=== PATIENT | male | born 1960 | race Caucasian/White ===

== ENCOUNTER 2016-07-09 07:22 | Emergency (ER) | payer MEDICAID ==
[2016-07-09 07:27] VITALS: BP 143/93; PULSE 93; RESP 20; TEMP 97.4
[2016-07-09] MEDS ORDERED: AMOXIC-POT CLAV 875-125MG 1 EACH TAB PO STA (07:45)
[2016-07-09] MEDS ORDERED: ACETAMINOPHEN TAB 500 MG TAB PO STA (07:45)
[2016-07-09] MEDS ORDERED: DIPH,PERTUS(ACELL)TETVAC-LF 0.5 ML VIAL IM ONE (07:45)
--- NOTE | 2016-07-09 07:55 | ED ---
Animal Bite HPI - General Chief Complaint: Animal Bite Stated Complaint: Cat Bite Time Seen by Provider: 07/09/16 07:34 Source: patient Mode of arrival: ambulatory Limitations: no limitations - History of Present Illness Initial Comments: Patient is a 55 years old male got bit by his own cat on Friday evening and this is about 35 hours ago, he is In a in-house Since Was 6 weeks old intact is now almost 20 years old about the vaccination status Is not vaccinated though he has been to the fact and patient himself is not sure about his tetanus shot and now he presents with a swelling of the right hand where They've him is quite swollen is red is painful but he denies any fever or chills or denies any streaks going up from the Bite to proximal upper extremity - Related Data Previous Rx's Medication Instructions Recorded Amoxic-Pot Clav 875-125Mg 1 tab PO Q12HR #20 tablet 07/09/16 [Augmentin 875-125] Allergies Allergy/AdvReac Type Severity Reaction Status Date / Time codeine AdvReac Nausea Verified 07/09/16 08:29 Review of Systems ROS Statement: Those systems with pertinent positive or pertinent negative responses have been documented in the HPI. ROS Other: All systems not noted in ROS Statement are negative. Past Medical History Past Medical History: No Reported History History of Any Multi-Drug Resistant Organisms: None Reported Past Surgical History: Hernia Repair Additional Past Surgical History / Comment(s): colonoscopies Past Anesthesia/Blood Transfusion Reactions: No Reported Reaction Past Psychological History: No Psychological Hx Reported Smoking Status: Never smoker Past Alcohol Use History: Occasional Past Drug Use History: None Reported - Past Family History Father Family Medical History: Cancer Mother Family Medical History: Cancer General Exam - General Exam Comments Initial Comments: General: The patient is awake and alert, in mild distress Skin: Skin the right hand is read, swollen, erythematous and now quite tender to palpate Eye: Pupils are equal, round and reactive to light, extra-ocular movements are intact; there is normal conjunctiva bilaterally. Ears, nose, mouth and throat: There are moist mucous membranes and no oral lesions. Neck: The neck is supple, there is no tenderness or JVD. Cardiovascular: There is a regular rate and rhythm. No murmur, rub or gallop is appreciated. Respiratory: To auscultation bilateral, no wheezing no rhonchi no distress respiratory ram noticed Gastrointestinal: Soft, non-distended, non-tender abdomen without masses or organomegaly noted. There is no rebound or guarding present. Bowel sounds are unremarkable. Back: There is no tenderness to palpation in the midline. There is no obvious deformity. Musculoskeletal: Normal ROM, no tenderness, There is no pedal edema. There is no calf tenderness or swelling. No cords were appreciated. Neurological: CN II-XII intact, Cranial nerves III through XII are intact. There are no obvious motor or sensory deficits. Coordination appears grossly intact. Speech is normal. Psychiatric: Cooperative, appropriate mood & affect, normal judgment. Limitations: no limitations Course Vital Signs 07/09/16 07:23 Temperature 97.4 F L Pulse Rate 93 Respiratory 20 Rate Blood Pressure 143/93 O2 Sat by Pulse 97 Oximetry Dyspneic with the pain shortness of sedation with her look into his CAT bite since he is not vaccinated and now we can get some directions from the health department with a he needs a rabies vaccine or not and will go to go ahead and give him a.m. tetanus booster Animal control and doesn't open until 11 we had a mouthful of the forearm and begin a fax that animal control and I will discharge him with the Augmentin for the next 7 days and animal control will follow-up from the vaccine [place] standpoint and he'll follow up with his family doctor or return to the ER if infection gets worse with the IV antibiotics Disposition Clinical Impression: Cat bite Disposition: HOME SELF-CARE Condition: Good Instructions: Animal Bite (ED) Prescriptions: Amoxic-Pot Clav 875-125Mg [Augmentin 875-125] 1 tab PO Q12HR #20 tablet Referrals: Yair Alex MD [Primary Care Provider] - 1-2 days
== END 2016-07-09 08:51 | disposition home or self-care (01) ==
LOC: EC 07:22
DX: S61.451A Open bite of right hand, initial encounter (principal); Z88.5 Allergy status to narcotic agent; Z23 Encounter for immunization; W55.01XA Bitten by cat, initial encounter; Y92.009 Unspecified place in unspecified non-institutional (private) residence as the place of occurrence of the external cause
CPT/HCPCS: 90471; 90715; 99283

== ENCOUNTER 2017-02-19 07:18 | Day surgery (SDC) | payer MEDICAID ==
[2017-02-17 11:36] VITALS: BMI 28.5
[~2017-02-19 07:18] MED LIST: LACTATED RINGERS 1,000 ML IV SCH
[2017-02-19 07:50] VITALS: TEMP 98.6
[2017-02-19] MEDS ORDERED: LIDOCAINE 1% 20 ML VIAL (10MG/ML) FOR IV START INTRADERMA ONE (07:57)
[2017-02-19] MEDS ORDERED: PROPOFOL 10 MG/ML 20 ML VIAL IV ONE (08:08)
--- NOTE | 2017-02-19 08:42 | P.PCN ---
Date of Procedure: 02/19/17 Procedure(s) Performed: BRIEF HISTORY: Patient is a 56-year-old pleasant white male, scheduled for an elective colonoscopy as a part of evaluation of prior history of colon polyps. Last colonoscopy was 5 years ago. PROCEDURE PERFORMED: Colonoscopy with snare polypectomy. PREOPERATIVE DIAGNOSIS: History of colon polyps. IV sedation per Anesthesia. PROCEDURE: After informed consent was obtained, the patient, was brought into the endoscopy unit. IV sedation was administered by Anesthesia under continuous monitoring. Digital rectal examination was normal. Initially the Olympus CF- 160 flexible video colonoscope was then inserted in the rectum, gradually advanced into the transverse colon and further advancement was not possible. Scope was removed and a. Colonoscopy was then introduced into the rectum and gradually advanced into the cecum mild to moderate difficulty. Careful examination was performed as the scope was gradually being withdrawn. Ileocecal valve and the appendiceal orifice were visualized and appeared normal. Prep was excellent. Mucosa of the cecum, ascending colon, appeared normal. In the mid transverse colon about 70 cm from the anal was there was a 7-8 mm polyp that was removed by snare polypectomy. Rest of the transverse colon, descending colon, sigmoid colon, and rectum appeared normal. Retroflexion was performed in the rectum and small internal hemorrhoids were seen. The patient tolerated the procedure well. IMPRESSION: 7-8 mm midtransverse colon polyp status post polypectomy. Small internal hemorrhoids. RECOMMENDATIONS: Findings of this examination were discussed with the patient as well as his family. He was advised to follow with the biopsy results. If the biopsy shows a tubular adenoma, he can have a repeat colonoscopy in 5 years.
[2017-02-19 08:47] VITALS: RESP 16
[2017-02-19 09:01] VITALS: BP 127/89; PULSE 72
== END 2017-02-19 09:12 | disposition home or self-care (01) ==
LOC: ORWHC2ENDO 07:18
PROVIDERS: ATTEND Internal Medicine Gastroenterology
DX: Z12.11 Encounter for screening for malignant neoplasm of colon (principal); D12.3 Benign neoplasm of transverse colon; K64.8 Other hemorrhoids; Z86.010 Personal history of colon polyps; Z86.73 Personal history of transient ischemic attack (TIA), and cerebral infarction without residual deficits
CPT/HCPCS: 88305; 45385; J2704

== ENCOUNTER 2019-10-15 08:00 | Day surgery (SDC) | payer MEDICAID ==
[2019-10-13 15:34] VITALS: BMI 28.1
[~2019-10-15 08:00] MED LIST changes: +ACETAMINOPHEN TAB 500 MG TAB PO ONE; +DEXAMETHASONE SOD PHOSPHATE 10 MG/ML 1 ML VIAL IV ONE; +HEPARIN SODIUM,PORCINE 5,000 UNIT/ML 1 ML VIAL SQ ONE; +LIDOCAINE 1% (10MG/ML) FOR IV START INTRADERMA PRN; +MIDAZOLAM 2 MG/2 ML VIAL IV PRN; +ONDANSETRON 4 MG/2 ML VIAL IVP ONE; +fentaNYL (PF) 50 MCG/ML 2 ML AMP IVP PRN
--- NOTE | 2019-10-15 08:01 | P.GSHP ---
History of Present Illness H&P Date: 10/15/19 Chief Complaint: Right inguinal hernia 58-year-old male known to service. Patient with history of previous umbilical and ventral hernia repaired with mesh in the past. Recently noticed swelling right groin. Mild pain at times. Here today for elective repair right inguinal hernia laparoscopically with the da Kirsty robot. Past Medical History Past Medical History: No Reported History Additional Past Medical History / Comment(s): FAMILY HX OF COLON CANCER History of Any Multi-Drug Resistant Organisms: None Reported Past Surgical History: Hernia Repair Additional Past Surgical History / Comment(s): colonoscopies Past Anesthesia/Blood Transfusion Reactions: No Reported Reaction Smoking Status: Never smoker - Past Family History Father Family Medical History: Cancer Additional Family Medical History / Comment(s): COLON CANCER Mother Family Medical History: Cancer Additional Family Medical History / Comment(s): Colon cancer Medications and Allergies Home Medications Medication Instructions Recorded Confirmed Type No Known Home Medications 02/17/17 10/13/19 History Allergies Allergy/AdvReac Type Severity Reaction Status Date / Time codeine AdvReac Nausea Verified 10/13/19 15:30 Surgical - Exam Physical exam: General: Well-developed, well-nourished HEENT: Normocephalic, sclerae nonicteric Abdomen: Nontender, nondistended, previous scars noted, moderate size right inguinal hernia, no palpable hernia on left Extremities: No edema Neuro: Alert and oriented Assessment and Plan (1) Right inguinal hernia Narrative/Plan: Will proceed with the da Kirsty assisted laparoscopic repair right inguinal hernia with mesh, possible open, possible bilateral at this time. Risks of bleeding, infection, recurrence, bladder and bowel injury, numbness, nerve injury, conversion to an open procedure were discussed with the patient. The patient understands and wishes to proceed. Status: Acute Code(s): K40.90 - UNIL INGUINAL HERNIA, W/O OBST OR GANGR, NOT SPCF RECUR SNOMED Code(s): 671547731
[2019-10-15] MEDS ORDERED: ALPRAZolam 0.5 MG TAB PO ONE (09:04)
[2019-10-15] MEDS ORDERED: ALPRAZolam 0.5 MG TAB ONE (09:04)
[2019-10-15] MEDS ORDERED: BUPIVACAINE (PF) 0.25% 30 ML VIAL SQ ONE ×3 (09:32→10:04)
[2019-10-15] MEDS ORDERED: ONDANSETRON 4 MG/2 ML VIAL ONE (09:34)
[2019-10-15] MEDS ORDERED: fentaNYL (PF) 50 MCG/ML 2 ML AMP ONE (09:34)
[2019-10-15] MEDS ORDERED: ROCURONIUM BROMIDE 10 MG/ML 5 ML VIAL IV ONE (09:34)
[2019-10-15] MEDS ORDERED: SUCCINYLCHOLINE CHLORIDE VIAL 200 MG/10 ML VIAL IV ONE (09:34)
[2019-10-15] MEDS ORDERED: PROPOFOL 10 MG/ML 20 ML VIAL IV ONE (09:34)
[2019-10-15] MEDS ORDERED: MIDAZOLAM 2 MG/2 ML VIAL ONE (09:34)
[2019-10-15] MEDS ORDERED: NEOSTIGMINE 1 MG/ML 10 ML VIAL ONE (09:34)
[2019-10-15] MEDS ORDERED: GLYCOPYRROLATE 0.2 MG/ML 2 ML VIAL ONE (09:34)
[2019-10-15] MEDS ORDERED: LIDOCAINE 1% INJ 10MG/ML (20 ML MDV) ONE (09:34)
[2019-10-15] MEDS ORDERED: KETOROLAC 15 MG/ML 1 ML VIAL ONE (09:34)
[2019-10-15] MEDS ORDERED: TAMSULOSIN 0.4 MG CAP.ER.24H PO STA (12:10)
--- NOTE | 2019-10-15 12:10 | P.OP ---
Date of Procedure: 10/15/19 Procedure(s) Performed: PREOPERATIVE DIAGNOSIS: Large right inguinal hernia POSTOPERATIVE DIAGNOSIS: Same PROCEDURE: Laparoscopic repair right inguinal hernia with the da Kirsty robot assistance with mesh SURGEON: Teresa EBL: Minimal ANESTHESIA: General COMPLICATIONS: None OPERATIVE PROCEDURE: Patient was placed in the operating table in the supine position. The patient was placed under general anesthesia. The abdomen was prepped and draped in usual sterile fashion. Because of the patient's previous midline hernia repair a 5 mm optical trocar was used under the abdominal cavity in the left midabdomen. There were no adhesions beneath the peritoneum at the umbilicus from previous repair. Following that a 8 mm trocar was placed through a vertical incision at the apex of his previous ventral hernia scar. 2 additional 8 mm trochars were placed in the right upper quadrant and left upper quadrant under visualization. The robotic arms were then brought in and docked into place. The fenestrated bipolar was used in the left arm and the laparoscopic akua was utilized in the right arm. A 30 8 mm scope was used in the up position. The peritoneal cavity was inspected. The patient had a large indirect hernia on the right-hand side. There is no visible hernia on the left. The peritoneum was incised in a horizontal fashion cephalad to the internal inguinal ring. Following that careful dissection of the preperitoneal space took place. This took place using both electrocautery, sharp dissection but primarily blunt dissection. Visualization of the pubic tubercle and Hermilo's ligament took place medially. Full dissection took place laterally as well. The hernia sac was fully dissected. Once we had adequate space the 15 x 10 progrip mesh was advanced into the preperitoneal space and flattened out appropriately to cover all potential hernia sites. No sutures were used. The peritoneal defect was then closed using a locking 2-0 VLok suture. During the course of the dissection the patient had a very thin peritoneum. There were multiple small defects of the peritoneum in the inguinal region. Using the large hernia sac we were able to close and cover all of these defects to prevent any adherence to the intra-abdominal structures. This was performed using a total of 3 running. The pneumoperitoneum was then evacuated. The skin of all 3 sites was closed using a 4-0 Monocryl stitch. Skin glue was then applied. DISPOSITION: Stable to recovery room
[2019-10-15 12:18] VITALS: RESP 16; TEMP 97.7
[2019-10-15] MEDS: HYDROmorphone 0.5 MG/0.5 ML SYRINGE IVP PRN ×4 (12:31→13:14)
[2019-10-15 13:46] VITALS: BP 146/87; PULSE 79
[2019-10-15] MEDS ORDERED: IBUPROFEN 600 MG TAB PO SCH (15:00)
[2019-10-15] MEDS ORDERED: ACETAMINOPHEN TAB 325 MG TAB PO SCH (18:00)
== END 2019-10-15 14:03 | disposition home or self-care (01) ==
LOC: OR 08:00
PROVIDERS: ATTEND Surgery
DX: K40.90 Unilateral inguinal hernia, without obstruction or gangrene, not specified as recurrent (principal); Z88.5 Allergy status to narcotic agent; Z98.890 Other specified postprocedural states; Z80.0 Family history of malignant neoplasm of digestive organs
CPT/HCPCS: 49650; C1781; J2250; J0330; J1644; J1100; J2710; J0690; J2405; J2001; J3010; J1885; J2704; J1170

== ENCOUNTER → 2024-01-23 | Outpatient (CLI) | payer BC ==
[2024-01-23 15:33] LABS: BUN/Creat Ratio 9.33 Ratio (12.00-20.00); Blood Urea Nitrogen 11.2 mg/dL (9.0-27.0); Carbon Dioxide 26.9 mmol/L (21.6-31.8); Chloride 106 mmol/L (96-109); Chol/HDL Ratio 3.81 Ratio; Glucose 100 mg/dL (70-110); LDL Cholesterol,Calculated 139.9 mg/dL (0.0-131.0); Potassium 4.4 mmol/L (3.5-5.5); Sodium 142 mmol/L (135-145)
[2024-01-23 15:34] LABS: ALT 15 U/L (10-49); AST 20 U/L (14-35); Albumin 4.3 g/dL (3.8-4.9); Albumin/Globulin Ratio 1.79 Ratio (1.60-3.17); Alkaline Phosphatase 55 U/L (41-126); Calcium 9.2 mg/dL (8.7-10.3); Globulin 2.4 g/dL (1.6-3.3); Prostate Specific Antigen 0.75 ng/mL (0.000-4.500); Total Bilirubin 1.1 mg/dL (0.3-1.2); Total Protein 6.7 g/dL (6.2-8.2)
[2024-01-23 18:34] LABS: HCT 58.3 % (39.6-50.0); MCH 30.1 pg (27.0-32.0); MCHC 30.9 g/dL (32.0-37.0); MCV 97.5 FL (80.0-97.0); NRBC Per 100 WBC 0 X 10*3/uL (0.00-0.01); Platelet Count 296 X 10*3/uL (140-440); RBC 5.98 X 10*6/uL (4.40-5.60); RDW 13.3 % (11.5-14.5); WBC 8.06 X 10*3/uL (4.50-10.00)
== END | disposition home or self-care (01) ==
LOC: LABWHC1 11:09
PROVIDERS: ATTEND Family Medicine
DX: E78.5 Hyperlipidemia, unspecified (principal); E66.3 Overweight; M70.61 Trochanteric bursitis, right hip
CPT/HCPCS: 36415; 80053; 80061; 84153; 84443; 85027